=== PATIENT | female | born 1995 | race Caucasian/White ===

== ENCOUNTER 2022-12-28 17:56 | Day surgery (SDC) | payer BC ==
[2022-12-28 18:37] VITALS: BMI 30.4
== END 2022-12-28 20:45 | disposition home or self-care (01) ==
LOC: CSHLD/OP 17:56
PROVIDERS: ATTEND Obstetrics & Gynecology
DX: O47.1 False labor at or after 37 completed weeks of gestation (principal); Z79.899 Other long term (current) drug therapy; Z3A.37 37 weeks gestation of pregnancy
CPT/HCPCS: 99283

== ENCOUNTER 2023-01-05 12:56 | Day surgery (SDC) | payer BC ==
[2023-01-05 13:26] VITALS: BMI 30.4
[2023-01-05] MEDS ORDERED: hydrALAZINE 20 MG/ML VIAL SLOW IVP PRN (13:40)
== END 2023-01-05 15:45 | disposition home or self-care (01) ==
LOC: CSHLD/OP 12:56
PROVIDERS: ATTEND Obstetrics & Gynecology
DX: O47.1 False labor at or after 37 completed weeks of gestation (principal); Z79.899 Other long term (current) drug therapy; Z3A.38 38 weeks gestation of pregnancy